=== PATIENT | male | born 1990 | race Caucasian/White ===

== ENCOUNTER 2021-11-19 18:11 | Emergency (ER) | payer MEDICAID ==
[~2021-11-19] VITALS: Ht 185.4 cm; Wt 92.0 kg
[2021-11-19] MEDS ORDERED: KETOROLAC 60MG/2ML VIAL IM ONE (19:30)
[2021-11-19] MEDS ORDERED: T3 PO (19:50)
[2021-11-19] MEDS ORDERED: IBUP-2028 PO (19:50)
[2021-11-19 20:14] VITALS: BP 125/65
== END 2021-11-19 20:18 | disposition home or self-care (01) ==
LOC: ER 18:11
DX: M54.50 Low back pain, unspecified (principal)
CPT/HCPCS: 72100; 96372; 99283; J1885